=== PATIENT | male | born 1975 ===

== ENCOUNTER 2023-11-08 03:46 | Inpatient (IN) | payer MEDICARE ==
[~2023-11-08] VITALS: Ht 182.9 cm; Wt 75.2 kg
[2023-11-08 04:16] LABS: BASO # 0.1 K/mm3 (0.0-0.2); BASO % 0.6 % (0.0-2.0); EOS # 0.3 K/mm3 (0.0-0.7); EOS % 1.9 % (0.0-4.0); GRAN # 10.4 K/mm3 (1.4-6.5); GRAN % 77.3 % (42.2-75.2); LYMPH # 1.9 K/mm3 (1.2-3.4); LYMPH % 14.1 % (20.0-51.0); MEAN CELL VOLUME 81 fl (80.0-100.0); MEAN CORPUSCULAR HGB CONC 33 g/dl (33.0-37.0); MEAN PLATELET VOLUME 9.3 fl (7.4-10.4); MONO # 0.8 K/mm3 (0.1-0.6); MONO % 5.7 % (1.7-9.3); PLATELET COUNT 240 K/mm3 (130-400); RED BLOOD COUNT 3.21 M/mm3 (4.20-5.60); REDCELL DISTRIBUTION WIDTH-CV 14.9 % (11.5-14.5)
[2023-11-08 04:17] LABS: HEMOGLOBIN 8.5 g/dl (13.5-18.0); MEAN CORPUSCULAR HEMOGLOBIN 26 pg (27-31)
[2023-11-08 04:31] LABS: ALANINE AMINOTRANSFERASE 16 U/L (0-55); ALBUMIN 3.1 gm/dL (3.5-5.0); ALKALINE PHOSPHATASE 86 U/L (40-150); ANION GAP 12 mmol/L (7-16); AST,SGOT 14 U/L (5-34); BILIRUBIN,TOTAL 0.3 mg/dL (0.2-1.2); BLOOD UREA NITROGEN 48 mg/dL (9-21); C-REACTIVE PROTEIN 2.75 mg/dL (0.00-0.50); CALCIUM 9.6 mg/dL (8.4-10.2); CHLORIDE 105 mmol/L (98-107); CREATININE, serum 1.65 mg/dL (0.72-1.25); ERYTHROCYTE SEDIMENTATION RATE 64 mm/hr (0-15); GLUCOSE 329 mg/dL (70-99); POTASSIUM 3.9 mmol/L (3.5-4.5); SODIUM 139 mmol/L (136-145); TOTAL PROTEIN 8.3 gm/dL (6.2-8.1)
[2023-11-08 04:43] LABS: TROPONIN-I < 0.010 ng/mL (0.00-0.033)
[2023-11-08] MEDS ORDERED: NS 1,000 ML IV ONE ×2 (04:45→06:00)
[2023-11-08] MEDS ORDERED: ZYVOX 600MG600 MG PO (05:25)
[2023-11-08] MEDS ORDERED: LIPITOR 40MG TA40 MG PO (05:26)
[2023-11-08] MEDS ORDERED: RISPERDAL 1M1 MG/TAB PO (05:26)
[2023-11-08] MEDS ORDERED: NORVASC 10MG10 MG PO (05:27)
[2023-11-08] MEDS ORDERED: Morphine 4 MG/ML VIAL IV PRN (05:30)
[2023-11-08] MEDS ORDERED: Ondansetron 4 MG/2 ML VIAL IV PRN (05:30)
[2023-11-08] MEDS ORDERED: Acetaminophen 325 MG TAB PO PRN (05:30)
[2023-11-08] MEDS ORDERED: oxyCODONE 5 MG TAB PO PRN (05:30)
[2023-11-08] MEDS ORDERED: Albuterol/Ipratropium 3 MG-0.5 MG/3 ML Neb Soln IH PRN (05:30)
[2023-11-08] MEDS ORDERED: cefTRIAXone 2 G in Water For Injection,Sterile 20 ML IV SCH (06:00)
[2023-11-08] MEDS ORDERED: Dextrose 50% Water 25 GM/50 ML SYRINGE IV PRN (06:15)
[2023-11-08] MEDS ORDERED: Dextrose (Glucose) 15 GM (4 x 3.75 GM) Chewable TABLET PACK PO PRN (06:15)
[2023-11-08] MEDS ORDERED: Glucagon 1 MG VIAL IM PRN (06:15)
--- NOTE | 2023-11-08 06:59 | NUR ---
Vancomycin Initial Dosing Pharmacy Note Ordering provider: Dr. Frank Indication/duration: Foot ulcers with concern for osteomyelitis x 7 days Relevant comorbidities: DM, HTN LABS: SCr = 1.65 Recommendation: Will draw troughs and follow levels. Loading dose: 2.25 grams Maintenance dose: 1.25 grams every 12 hours Trough goal: 15-20 ug/mL
[2023-11-08 07:15] LABS: COLLECTION METHOD CLEAN CATCH
[2023-11-08 07:28] LABS: PH 5.5 (5.0-8.5); URINE APPEARANCE CLEAR (CLEAR/HAZY); URINE BLOOD TRACE (NEGATIVE); URINE COLOR YELLOW (YELLOW); URINE GLUCOSE 3+ (NEGATIVE); URINE KETONE NEGATIVE (NEGATIVE); URINE NITRATE NEGATIVE (NEGATIVE); URINE PROTEIN(semi-quant) 2+ (NEGATIVE); URINE UROBILINOGEN 0.2 E.U/dL (0.2-1.0)
[2023-11-08] MEDS ORDERED: Vancomycin 1.25 GM,Special Dose/Pharmacy Prepared 1.25 GM in NS 250 ML IV ONE (07:30)
--- NOTE | 2023-11-08 07:45 | NUR ---
PATIENT ARRIVED FROM ER DROWSY, MINIMALLY RESPONSIVE TO RN QUESTIONS. HOWEVER WOULD OCCASIONALLY OBEY COMMANDS. PATIENTS CALL LIGHT WITHIN REACH. IV FLUID AND ANTIBIOTIC INFUSING. FALL PRECAUTIONS IN PLACE.
[2023-11-08 07:46] LABS: TRICYCLIC ANTIDEPRESS URINE NEGATIVE (NEGATIVE)
[2023-11-08] MEDS ORDERED: Insulin Lispro (HumaLOG) SQ SCH ×2 (08:00→12:00)
[2023-11-08 08:18] VITALS: BP 160/83; PULSE 83; TEMP 98
[2023-11-08] MEDS ORDERED: amLODIPine 10 MG TAB PO SCH (09:00)
[2023-11-08] MEDS ORDERED: Sennosides/Docusate 8.6-50 MG TAB PO SCH (09:00)
--- NOTE | 2023-11-08 10:00 | NUR ---
THIS RN CALLED [facility] THIS AM TO GT A MEDICATION LIST, PATIENT HAS NOT BEEN ABLE TO INFORM US. PER YAMEL, PATIENT IS NOT IN THEIR SYSTEM, [facility]. PER MEDICAITON CLAIM HISTORY, PATIENT HAS NOT PICKED UP ANY MEICAITONS IN AT LEAST 180 DAYS. MD LING
[2023-11-08] MEDS ORDERED: Insulin Glargine-ygfn (Lantus) SQ SCH (11:00)
[2023-11-08 11:24] VITALS: BP 158/81; PULSE 88; TEMP 98.2
[2023-11-08] MEDS ORDERED: COZAAR 50MG50 MG/TAB PO (11:24)
--- NOTE | 2023-11-08 13:00 | NUR ---
PATIENT FREQUENTLY FOUND [place] HYSTERICALLY LAUGHING WHILE SITTING UP IN BED. NO ONE ELSE IN THE ROOM, NO TV ON . YURIY DOES NOT HAVE A CELLPHONE.
[2023-11-08 13:02] VITALS: BP_SYST 158
--- NOTE | 2023-11-08 14:35 | NUR ---
YURIY REFUSING FALL PRECAUTIONS, GAIT BELT, GOWN, AND BED ALARM.
--- NOTE | 2023-11-08 14:58 | NUR ---
Medical Device met with patient at bedside to discuss discharge planning. Patient reported that he is originally from [place] where he lived with his parents. Patient moved to [facility] where he lived for approximately 6 months in an apartment. Patient states that he was "unlawfully" evicted from the apartment, at which time he came to [facility]. Patient states he stayed one night at the [facility] motel and was evicted when police escorted him out. Patient was homeless and had a passerby at [facility] call 911 for him due to thinking he had shannon bite on his feet from stepping in cold water. Patient states he has no one to list as an emergency contact, states he has [employer] insurance and receives Social Security Disability. Patient states he had medicaid when living in [place]. Patient denies using any DME. Patient did share that he has schizophrenia when directly asked about any mental health history. Patient stated "I'm on the wrong medication, I can't take respirodone". Patient stating that he been hospitalized in [place] and in [place]. Patient stated he can't go to homeless usp because he is severly allergic to smoke. Patient also asking for clothing and glasses. Patient voicing delusional thoughts during this assessment as evidenced by stating he was a premed student in high school. Discharge plan uncertain at this time. SW will continue to follow. Discharge: [facility]
--- NOTE | 2023-11-08 15:09 | NUR ---
PER SW, PATIENT STATED HE HAS SCHIZOPHRENIA, HOWEVER HAS NOT BEEN TAKIN MEDICAITONS BECAUSE THEY MAKE HIM FEEL LIKE HES "SMOKIN CRACK." PATIENT STATED HE WAS HOSPITALIZED FOR THIS IN [facility]. NOTIFIED. NO NEW ORDERS AT THIS TIME.
[2023-11-08 15:17] VITALS: BP 166/76; PULSE 85; TEMP 97.8
--- NOTE | 2023-11-08 17:00 | NUR ---
YURIY REFUSES STAFF ASSISTANCE TO TOILET AND IS ANNOYED WHEN STAFF TRY TO PLACE BED ALARM. EDUCATION GIVEN, HOWEVER YURIY DOES NOT SEEM ABLE TO ACCEPT EDUCATION.
[2023-11-08 17:13] VITALS: BP_SYST 166
--- NOTE | 2023-11-08 18:00 | NUR ---
UPON ENTERING ROOM IN A SECOND ATTEMPT TO GIVE PATIENT HIS INSULIN. JEFFERY REFUSED STATING HIS BLOOD SUGAR WAS TOO LOW. HOWEVER, THIS RN POINTTED OUT THAT HE ATE 100% OF HIS MEAL AND [facility]SP REQUESTED SNACKS. PATIENT EDUCATED ON INSULIN AND ADA DIET. PATIENT NOT INTERESTED.
[2023-11-08] MEDS ORDERED: risperiDONE 1 MG TAB PO SCH (21:00)
[2023-11-08] MEDS ORDERED: Atorvastatin 40 MG TAB PO SCH (21:00)
[2023-11-08] MEDS ORDERED: Vancomycin 1.25 GM,Special Dose/Pharmacy Prepared 1.25 GM in NS 250 ML IV SCH (21:00)
[2023-11-09] VITALS (13 sets, daily range): BP systolic 103–186; BP diastolic 63–83; PULSE 65–76; TEMP 97.3–98.2
--- NOTE | 2023-11-09 08:00 | NUR ---
Patient is resting in bed, alert and oriented, he asks about his insulin doses and types, education provided. Some blood drawn by Charge nurse for his morning labs. Assessment completed, meds given. No further needs at this time. Call light within reach.
[2023-11-09 08:47] LABS: BASO # 0.1 K/mm3 (0.0-0.2); BASO % 0.9 % (0.0-2.0); EOS # 0.3 K/mm3 (0.0-0.7); GRAN # 4.7 K/mm3 (1.4-6.5); GRAN % 67.3 % (42.2-75.2); LYMPH # 1.5 K/mm3 (1.2-3.4); LYMPH % 21.1 % (20.0-51.0); MEAN CELL VOLUME 80 fl (80.0-100.0); MEAN CORPUSCULAR HGB CONC 32 g/dl (33.0-37.0); MEAN PLATELET VOLUME 9.1 fl (7.4-10.4); MONO # 0.5 K/mm3 (0.1-0.6); MONO % 6.4 % (1.7-9.3); PLATELET COUNT 226 K/mm3 (130-400); REDCELL DISTRIBUTION WIDTH-CV 14.9 % (11.5-14.5)
[2023-11-09 08:54] LABS: CALCIUM 8.5 mg/dL (8.4-10.2); CREATININE, serum 1.04 mg/dL (0.72-1.25); POTASSIUM 3.6 mmol/L (3.5-4.5)
[2023-11-09 08:55] LABS: HEMATOCRIT 27.1 % (42.0-52.0); HEMOGLOBIN 8.7 g/dl (13.5-18.0); MEAN CORPUSCULAR HEMOGLOBIN 26 pg (27-31)
--- NOTE | 2023-11-09 12:23 | NUR ---
Patient Services Coordinator attended IDR rounds with attending. Plan is for patient to discharge tomorrow to local homeless snf. Patient provided SW with copy of [employer] insurance card which was provided to DOVETAIL MACHINE OPERATOR. Copy emailed to R1.
--- NOTE | 2023-11-09 12:50 | NUR ---
SW spoke with [facility] to inquire about bed availability. Provided patient demongraphic information. They can provide patient a bed at discharge for 48 hours under their transient policy. Discharge: homeless retirement
[2023-11-09] MEDS ORDERED: Heparin 5,000 UNITS/ML 1 ML VIAL SQ SCH (16:00)
--- NOTE | 2023-11-09 16:15 | NUR ---
Patient assisted to the restroom, linens changed, now in chair.
[2023-11-10] VITALS (12 sets, daily range): BP systolic 105–199; BP diastolic 72–80; PULSE 61–79; TEMP 97.5–98.5
--- NOTE | 2023-11-10 00:14 | NUR ---
PT ALERT AND ORIENTED, SEEMS TO BE WORRIED ABOUT WHEN HE WILL BE GOING TO THE CORRECTION. RELAYED TO HIM IT WILL BE ONCE CORRECTION VERIFIES THEY HAVE A SPOT FOR HIM, HE IS ALSO CONCERENED ABOUT HAVING CLEAN CLOTHES TO WEAR WHEN HE LEAVES. I ASSURED HIM SS WILL MEET WITH HIM TO DISCUSS ALL CONCERNS. SHIFT ASSESSMENT COMPLETE,MEDICATED PER EMAR. VSS, EVEN UNLABORED RESPR. DENIES FURHTER NEED, CALL LIGHT WITHIN REACH.
--- NOTE | 2023-11-10 08:00 | NUR ---
PATIENT AWAKE AND ALERT, SITTING UP IN BED. PATIENT DENIES ANY NEEDS OR COMPLAINTS AT THIS TIME. PATIEINT REFUSING SLIDING SCALE INSULIN WELL BLOOD THINNER INJECTION. PATIENT NOT INTERESTED IN EDUCAITON. CALL LIGHT WITHIN REACH.
--- NOTE | 2023-11-10 08:24 | NUR ---
AWAITNG MD ROUNDS, NO IV ACCESS AT THISO TIME.
[2023-11-10 09:02] LABS: BASO % 0.7 % (0.0-2.0); EOS # 0.2 K/mm3 (0.0-0.7); EOS % 3.3 % (0.0-4.0); GRAN # 3.9 K/mm3 (1.4-6.5); GRAN % 63.6 % (42.2-75.2); LYMPH # 1.6 K/mm3 (1.2-3.4); LYMPH % 25.7 % (20.0-51.0); MEAN CELL VOLUME 79 fl (80.0-100.0); MEAN CORPUSCULAR HGB CONC 32 g/dl (33.0-37.0); MEAN PLATELET VOLUME 9.3 fl (7.4-10.4); MONO # 0.4 K/mm3 (0.1-0.6); MONO % 6.4 % (1.7-9.3); PLATELET COUNT 183 K/mm3 (130-400); RED BLOOD COUNT 3.43 M/mm3 (4.20-5.60); REDCELL DISTRIBUTION WIDTH-CV 14.9 % (11.5-14.5)
[2023-11-10 09:03] LABS: HEMATOCRIT 27.2 % (42.0-52.0); HEMOGLOBIN 8.8 g/dl (13.5-18.0); MEAN CORPUSCULAR HEMOGLOBIN 26 pg (27-31)
--- NOTE | 2023-11-10 09:22 | NUR ---
SW met with patient with attending. Attending explained in detail results of MRI indicating infection in bone of both lower extremities which will require 6 weeks IV antibiotics. Discussed need for referral to swing bed unit for antibiotic therapy. Patient stated "this is ridiculous, I have to go to [place] to pay someone at a pawn shop some money." Patient stating he wants to leave to pay money in [place] by 11/11 and return to hospital. Patient informed that is not possible and he would be leaving [place] if he chooses to do this. Patient stated he would make phone call to see if he can pay over the phone. Discussed discharge options with attending and treatment team. Phone call made to [facility] in [place] to inquire about swing bed option. Referral will be sent to [facility] for review. Discharge Plan: Swing bed for IV abx therapy
[2023-11-10 09:34] LABS: CALCIUM 8.4 mg/dL (8.4-10.2); CREATININE, serum 1.08 mg/dL (0.72-1.25); POTASSIUM 3.5 mmol/L (3.5-4.5)
--- NOTE | 2023-11-10 10:08 | NUR ---
Initial visit; Patient thanked Gold Stamper for looking in on him and offering Spiritual Care. She asked if there was anything she could help with. Batool asked what Gold Stamper's do if they meet someone who is not Religion. Gold Stamper presented Batool with her [place] Card which helped her answer his question. Gold Stamper let him know she is always available to offer Spiritual Care.
[2023-11-10] MEDS ORDERED: HUMALOG100 U/ML SQ (12:10)
[2023-11-10] MEDS ORDERED: LANTUS SOLOS100 U/ML SQ (12:11)
--- NOTE | 2023-11-10 13:00 | NUR ---
PATIENT AWAKEA NICOLE MONREAL, SITITNG UP IN RECLINER EATING LUNCH. PATEINT DENIES ANY NEEDS OR COMPLAINTS AT THIS TIME. CALL LIGHT WITHIN REACH.
--- NOTE | 2023-11-10 15:25 | NUR ---
craft worker met with patient. Patient states he was in a mcc in [place] and then the hospital last week and was kicked out of hospital by the police department. Patient stated he was kicked out of the [place] [address] in [place] on the by the police department. Worker spoke with INDERJIT Teixeira and confirmed that patient left without incident and gave his last name was Judy. Worker states that he plans to return to [place] on the and is aware that he would be leaving [place].
--- NOTE | 2023-11-10 16:18 | NUR ---
[facility]br[facility] in [place] confirms that patient does not have a Ban and can admit there. Abram could not confirm if patient has been there due to privacy. The [facility] stated that patient has not been there previously.
--- NOTE | 2023-11-10 17:03 | NUR ---
PHYSICIAN INFORMED PATIENT HAS A HIGH DOSE SLIDING SCALE WELL 5 UNITS SCHEDULED WITH EACH MEAL. PATIENTS PREVIOUS BLOOD SUGAR WAS IN THE 260S, HE RECIEVED 8 UNITS OF SLIDING SCALE AND 5 UNITS SCHEDULED. PATIENTS BLOOD SUGAR CURRENTLY 74. PER PHYSICIAN TORB TO CHANGED PATIENTS INSULIN SLIDIDNG SCALE TO LOW DOSE AND KEEP CURRENT SCHEDULED INSULIN.
--- NOTE | 2023-11-10 21:30 | NUR ---
Patient resting in bed. Denies any pain at this time. Snack and hot cocoa provided. Assessment complete. IV in left forearm flushes easily with no complications. Call light and personal items in reach. Bed in low position.
[2023-11-11] VITALS (12 sets, daily range): BP systolic 125–172; BP diastolic 58–82; PULSE 54–74; TEMP 97.2–98.2
--- NOTE | 2023-11-11 05:30 | NUR ---
Patient resting in bed. Denies any pain or needs at this time. No changes over night. Call light and personal items in reach. Bed in low position.
[2023-11-11 07:05] LABS: CALCIUM 8.7 mg/dL (8.4-10.2); CREATININE, serum 0.98 mg/dL (0.72-1.25); POTASSIUM 4.3 mmol/L (3.5-4.5)
[2023-11-11 08:10] LABS: BASO # 0.1 K/mm3 (0.0-0.2); BASO % 0.9 % (0.0-2.0); EOS # 0.2 K/mm3 (0.0-0.7); EOS % 4.2 % (0.0-4.0); GRAN # 3.1 K/mm3 (1.4-6.5); GRAN % 56.8 % (42.2-75.2); LYMPH # 1.6 K/mm3 (1.2-3.4); LYMPH % 29.7 % (20.0-51.0); MEAN CELL VOLUME 80 fl (80.0-100.0); MEAN CORPUSCULAR HGB CONC 32 g/dl (33.0-37.0); MEAN PLATELET VOLUME 9.1 fl (7.4-10.4); MONO # 0.5 K/mm3 (0.1-0.6); MONO % 8.4 % (1.7-9.3); PLATELET COUNT 232 K/mm3 (130-400); RED BLOOD COUNT 3.55 M/mm3 (4.20-5.60); REDCELL DISTRIBUTION WIDTH-CV 14.7 % (11.5-14.5)
[2023-11-11 08:12] LABS: HEMATOCRIT 28.5 % (42.0-52.0); HEMOGLOBIN 9.1 g/dl (13.5-18.0); MEAN CORPUSCULAR HEMOGLOBIN 26 pg (27-31)
--- NOTE | 2023-11-11 09:06 | NUR ---
SASKIA Méndez, requested medical records from pts prior stays at [facility]. Packing House Supervisor, Anodiser RN, contacted Anodiser at [facility] who relayed STAT medical records request fax ([phone]). RN sent fax to the above number with appropriate cover sheet, pts demographic sheet, and explanation of request. To await records.
--- NOTE | 2023-11-11 10:35 | NUR ---
PSYCH CONSULT WAS PLACED FOR THIS PATIENT TO DETERMINE IF PATIENT COUND MAKE DECISIONS FOR HIMSELF. PSYCHIATRIST WENT AND ATTEMPTED TO SPEAK WITH THE PATIENT, BUT HE IMMEDIATELY TOLD HER TO LEAVE THE ROOM BECAUSE HE HAS DEALT WITH PSYCHIATRISTS BEFORE AND THAT HE TAKES HIS MEDICATIONS NURSING CAME IN TO SPEAK WITH THE PATIENT PER MD REQUEST. PATIENT VICENTE DENIED A PSYCH CONSULT.
--- NOTE | 2023-11-11 14:18 | NUR ---
PATIENT REFUSES HEPARIN INJECTIONS
--- NOTE | 2023-11-11 14:43 | NUR ---
Physician signs involuntary hold form and this, along with clinicals, is being faxed to [facility] courts by Assistant Teacher Primary. Worker contacted patient's sister and had a phone call with sister Ibeth Soto #[phone] and patient's parents Father (Lopez Soto #[phone]. Worker advised of the above and severe infection with concern that patient may not have capacity to make his decisions. Patient currently has a life threatening infection. Ibeth discusses guardianship process and worker has asked if family will be a guardian for patient, if needed. Ibeth doesn't commit an answer to this question. Sister acknowledged patient's long history of schizophrenia and states that patient willingly left his parent's home where he had been residing. Sister denies that parent's kicked patient out of their home, as patient states. Worker collaborated with Dr Calles and Francheska Kim, Risk Management.
[2023-11-11] MEDS ORDERED: LORazepam 2 MG/ML 1 ML VIAL IV ONE (18:30)
--- NOTE | 2023-11-11 18:38 | NUR ---
PATIENT GOT UPSET THAT HIS VANCOMYCIN WAS RUNNING. HE WAS SCREAMING AND SAID, "TAKE THIS OFF RIGHT NOW THIS DOES NOT WORK" NURSING STAFF CAME IN AND STATED THEY NEEDED TO ASK THE PHYSICIAN AND NURSE CARING FOR THE PATIENT ABOUT TURNING OFF THE VANCOMYCIN. NURSING STAFF SHUT OFF THE VANCOMYCIN BECAUSE PATIENT WAS BECOMING AGITATED. NURSE CARING FOR THE PATIENT CAME IN AND SPOKE WITH THE PATIENT ABOUT VANCOMYCIN TROUGHS AND THAT WE WERE MONITORING FOR LEVELS OF TOXICITY AND THAT HE WAS SAFE. PATIENT ALLOWED NURSING TO TURN HIS VANCOMYCIN BACK ON AND SAID THAT HE WAS SORRY AND WANTED SOMETHING ELSE TO EAT. PATIENT IS CURRENTLY RESTING IN BED.
--- NOTE | 2023-11-11 20:00 | NUR ---
Patient resting in bed. Denies any pain at this time. Snack provided, denies any other needs. Assessment complete. IV in left forearm flushes easily with no complications. Call light and personal items in reach. Bed in low position and bed alarm on.
[2023-11-12] VITALS (10 sets, daily range): BP systolic 124–191; BP diastolic 58–77; PULSE 68–79; TEMP 97.9–98.3
--- NOTE | 2023-11-12 06:00 | NUR ---
Patient resting in bed. Denies any pain or needs at this time. No changes over night. Call light and personal items in reach. Bed in low position and bed alarm on.
[2023-11-12 07:22] LABS: BASO # 0.1 K/mm3 (0.0-0.2); BASO % 0.7 % (0.0-2.0); EOS # 0.2 K/mm3 (0.0-0.7); EOS % 2.7 % (0.0-4.0); GRAN # 5.1 K/mm3 (1.4-6.5); GRAN % 60.8 % (42.2-75.2); LYMPH # 2.5 K/mm3 (1.2-3.4); LYMPH % 29.7 % (20.0-51.0); MEAN CELL VOLUME 81 fl (80.0-100.0); MEAN CORPUSCULAR HGB CONC 32 g/dl (33.0-37.0); MEAN PLATELET VOLUME 9.1 fl (7.4-10.4); MONO # 0.5 K/mm3 (0.1-0.6); MONO % 5.9 % (1.7-9.3); PLATELET COUNT 237 K/mm3 (130-400); RED BLOOD COUNT 3.53 M/mm3 (4.20-5.60); REDCELL DISTRIBUTION WIDTH-CV 14.9 % (11.5-14.5)
[2023-11-12 07:24] LABS: HEMATOCRIT 28.5 % (42.0-52.0); HEMOGLOBIN 9.2 g/dl (13.5-18.0); MEAN CORPUSCULAR HEMOGLOBIN 26 pg (27-31)
--- NOTE | 2023-11-12 07:38 | NUR ---
Bedside report received from BERNICE Ulloa with primary day nurse Patel present. Pt is awake in bed, ambulated to bathroom with this student nurse. Shift assessment completed. Dressing to bilateral feet CDI with no drainage, redness, or swelling. VSS with a BP of 172/73. Primary nurse Patel notified. Contact isolation precautions in place. INT to Lt forearm patent with no swelling, redness, or drainage. Pt has no complaints at this time. Call light within reach.
[2023-11-12 07:40] LABS: CALCIUM 8.5 mg/dL (8.4-10.2); CREATININE, serum 1.06 mg/dL (0.72-1.25)
--- NOTE | 2023-11-12 10:56 | NUR ---
Assessed bilateral foot wounds and performed dressing change. Rt foot wound has some serosanguineous drainage. Lt foot ulcer dry with no drainage at this time. Applied silver aliginate aquacell to bilateral foot ulcers and wrapped in gauze, secured with tape. Pt tolerated well with minimal complaints of pain. Primary nurse Earlhina at bedside assisting this student nurse.
--- NOTE | 2023-11-12 16:00 | NUR ---
fuller brush worker contacted patient's sister, Ibeth, and confirmed that patient's only child is 17 years old and that patient is legally from his ex-. Ibeth stated she and patient's parents discussed who is best candidate for guardian and that she is at this time. Ibeth stated that she and her parents would collaborate on decisions. Ibeth will discuss with her parents, who would be best for conservator. [facility] and obtained another fax number. Worker faxed information and confirmed that the office was receiving it.
[2023-11-12] MEDS ORDERED: INSULIN LI100 UNIT/1 SQ (19:26)
[2023-11-12] MEDS ORDERED: INSLANT SQ (19:26)
[2023-11-12] MEDS ORDERED: Losartan 50 MG TAB PO SCH (21:00)
[2023-11-13 00:23] VITALS: BP_SYST 191
--- NOTE | 2023-11-13 01:19 | NUR ---
PT ALERT AND ORIENTED, RESTING IN BED AT START OF SHIFT. REQUESTING COFFEE WITH MILK. SHIFT ASSESSMENT COMPLETE REFUSED SOME OF HIS MEDS, SEE EMAR. [employer], DRESSING CHANGED DURING DAY SHIFT, CDI. VERY APOLOGETIC ABOUT BEING AGRERSSIVE IN HIS ANSWERS AND BEHAVIORS. CAN BE VERY FORWARD WHEN HE WANTS SOMETHING OR WANTS HIS QUESTIONS ANSWERED. CONTACT ISOLATION PRECAUTIONS IN PLACE. DR. JUAREZ AND I WENT INTO PT ROOM TOGETHER TO INFORM HIM THAT HE WAS ACCEPTED AT [facility], THAT HE COULD POSSIBLY TRANSFER TONIGHT. HE WAS ACCEPTING. WHEN DR. JUAREZ INFORMED HIM THAT HIS FAMILY ASKED ABOUT HIM HE GOT VERY AGGITATED AND STATED THEY DIDNT CARE. AWAITING OREDERS FOR HIM TO BE TRANSPORTED. PT DENIES FURTHER NEED AT THIS TIME. CALL LIGHT WITHIN REACH.
--- NOTE | 2023-11-13 01:28 | NUR ---
EMS TRANSPORT ARRIVED AROUND 2234 TO TRANSFER PT TO [facility], PT AGREEABLE. ALL PT BELONGINGS SENT WITH HIM. DISCHARGE PAPERWORK SENT WITH EMS. PT OFF UNIT AT 2245.
== END 2023-11-12 22:46 | disposition short-term general hospital (02) | DRG 982 ==
LOC: COL.ER 03:46 → MEDICAL 05:59 → EDBEDREQ 07:33 → MEDICAL 08:36
PROVIDERS: Emergency Medicine; Hospitalist; Internal Medicine; Physician Assistant; ADMIT Internal Medicine
PROC: 0QDN0ZZ Extraction of Right Metatarsal, Open Approach (ICD-10-PCS; principal; 2023-11-10)
DX: E11.69 Type 2 diabetes mellitus with other specified complication (principal); M86.8X7 Other osteomyelitis, ankle and foot; Z16.35 Resistance to multiple antimicrobial drugs; Z59.00 Homelessness unspecified; E11.621 Type 2 diabetes mellitus with foot ulcer; L97.529 Non-pressure chronic ulcer of other part of left foot with unspecified severity; L97.519 Non-pressure chronic ulcer of other part of right foot with unspecified severity; E78.5 Hyperlipidemia, unspecified; I10 Essential (primary) hypertension; B95.62 Methicillin resistant Staphylococcus aureus infection as the cause of diseases classified elsewhere; B96.1 Klebsiella pneumoniae [K. pneumoniae] as the cause of diseases classified elsewhere; F20.9 Schizophrenia, unspecified; L85.9 Epidermal thickening, unspecified; R59.1 Generalized enlarged lymph nodes; B96.83 Acinetobacter baumannii as the cause of diseases classified elsewhere; F39 Unspecified mood [affective] disorder; N17.9 Acute kidney failure, unspecified; Z79.4 Long term (current) use of insulin; Z79.899 Other long term (current) drug therapy; Z23 Encounter for immunization
CPT/HCPCS: J0696; J1644; J1815; J2060; J3370; J7030; J7050; Q3014